=== PATIENT | female | born 1990 | race American Indian/Alaskan Native ===

== ENCOUNTER 2016-07-17 19:16 | Emergency (ER) | payer SELFPAY ==
[2016-07-17 19:20] VITALS: BMI 25.6
[2016-07-17 19:25] VITALS: BP 122/79; PULSE 86; RESP 18; TEMP 98.8; O2SAT 100
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
--- NOTE | 2016-07-18 09:12 | RAD ---
PROCEDURE: Radiographs of Nasal Bones HISTORY: nasal injury r/o fx COMPARISON: None available. TECHNIQUE: Frontal and lateral radiographs of the nasal bones. FINDINGS: No fracture of nasal bones visualized. No destructive lesion. IMPRESSION: No nasal bone fracture visualized.
== END 2016-07-17 21:04 | disposition home or self-care (01) ==
LOC: EDBD → ED 19:16
DX: S02.2XXA Fracture of nasal bones, initial encounter for closed fracture (principal); Y09 Assault by unspecified means